=== PATIENT | male | born 1965 | race American Indian/Alaskan Native ===

== ENCOUNTER 2018-09-30 22:17 | Emergency (ER) | payer SELFPAY ==
--- NOTE | 2018-09-30 22:45 | Emergency Department Report ---
Chief Complaint: Upper Respiratory Infection Stated Complaint: FLU SYMPTOMS Time Seen by Provider: 09/30/18 22:40 - HPI History of Present Illness: This is a 53 y.o. male that presents with body aches from influenza. Patient was diagnoised yesterday by [facility] with Influenza and started on tamiflu, azithromycin, and virtussin. Patient states pain is not improved by medication. He denies chest pains, shortness of breath. - ROS Review of Systems: positive myalgia and cough MSE screening note: Focused history and physical exam performed. Due to findings the following was ordered: Instructed to continue taking tamiflu and virtussin. Stop taking azithromycin. MSE home. ED Disposition for MSE Condition: Stable
== END 2018-09-30 22:41 | disposition left against medical advice (07) ==
LOC: ED 22:17